=== PATIENT | female | born 1980 | race American Indian/Alaskan Native ===

== ENCOUNTER 2017-02-06 08:46 | Emergency (ER) | payer SELFPAY ==
[2017-02-06] MEDS ORDERED: ZOFRAN IV ONE (09:23)
[2017-02-06 09:31] VITALS: BP 113/76
[2017-02-06] MEDS ORDERED: TORADOL IV ONE (09:59)
[2017-02-06] MEDS ORDERED: NACL 0.9% 1000 ML 1,000 ML IV ONE (09:59)
[2017-02-06 10:00] LABS: Bacteria,Urine 1+ /HPF (Negative); Bilirubin,Urine NEG (Negative); Blood,Urine SM (Negative); Ketones,Urine NEG (Negative); Leukocyte Esterase,Urine MOD (Negative); Nitrite,Urine NEG (Negative); Protein,Urine <15 mg/dL mg/dL (Negative); Urobilinogen,Urine < 2.0 mg/dL (<2.0)
--- NOTE | 2017-02-06 10:04 | Emergency Department Report ---
<ARIEL LOPEZ M - Last Filed: 02/06/17 12:42> ED Abdominal Pain HPI - General Chief Complaint: Upper Respiratory Infection Stated Complaint: BODY PAIN Time Seen by Provider: 02/06/17 09:52 Source: patient Mode of arrival: Wheelchair Limitations: No Limitations - History of Present Illness Initial Comments: PT c/o abd pain and n/v x 2 days. PT states she is throwing up yellow stuff and she is scared because the last time she did that, she was having ectopic and she passed out. PT states the pain radiates up to her chest and around to her back. pt denies sick contacts. MD Complaint: abdominal pain Onset/Timin -: Gradual, days(s) Location: diffuse Radiation: back, chest Severity scale (0 -10): 10 Quality: stabbing, aching Consistency: constant Improves With: nothing Associated Symptoms: nausea, vomiting, fever, chills, anorexia - Related Data LMP Date: 02/01/17 Allergies Allergy/AdvReac Type Severity Reaction Status Date / Time No Known Allergies Allergy Unverified 02/06/17 09:31 ED Review of Systems ROS: Stated complaint: BODY PAIN Other details as noted in HPI Comment: All other systems reviewed and negative Constitutional: chills, fever, malaise ENT: congestion. denies: throat pain Respiratory: cough Cardiovascular: chest pain Gastrointestinal: abdominal pain, nausea, vomiting Genitourinary: dysuria, frequency Musculoskeletal: back pain ED Past Medical Hx - Past Medical History Previous Medical History?: No - Surgical History Past Surgical History?: No Hx Appendectomy: Yes (8 years) Additional Surgical History: R fallopian tube removal - Social History Smoking Status: Never Smoker Substance Use Type: None ED Physical Exam - General Limitations: No Limitations General appearance: alert, anxious - Head Head exam: Present: atraumatic, normocephalic - Eye Eye exam: Present: normal appearance, conjunctival injection (pt appears to have been crying) - ENT ENT exam: Present: normal exam, normal orophraynx, mucous membranes moist - Neck Neck exam: Present: normal inspection, full ROM - Respiratory Respiratory exam: Present: normal lung sounds bilaterally. Absent: respiratory distress - Cardiovascular Cardiovascular Exam: Present: regular rate, normal rhythm, normal heart sounds - GI/Abdominal GI/Abdominal exam: Present: soft, tenderness, guarding, normal bowel sounds - Expanded GI/Abdominal Exam Expanded GI/Abdominal exam: Present: Suero's sign - Extremities Exam Extremities exam: Present: normal inspection, full ROM - Back Exam Back exam: Present: normal inspection, CVA tenderness (R) - Neurological Exam Neurological exam: Present: alert, oriented X3 - Psychiatric Psychiatric exam: Present: normal affect, normal mood - Skin Skin exam: Present: warm, dry, intact ED Course Vital Signs 02/06/17 09:18 Temperature 98.5 F Pulse Rate 91 H Respiratory 24 Rate Blood Pressure 113/76 O2 Sat by Pulse 100 Oximetry - Reevaluation(s) Reevaluation #1: 02/06/17 10:04 PT states her N/V has improved since she was given IV Zofran. PT aware of significant PE findings and plan of care. PT is aware that she is NPO. Reevaluation #2: 02/06/17 12:42 PT feeling much better. pt denies pain at this time. PT aware of dx and plan of care. 02/06/17 12:48 dr perez aware of pt and agrees with plan of care. - Pulse Oximetry Interpretation Digit-Finger Initial Pulse Oximetry Readin Actions Taken: none ED Medical Decision Making - Lab Data Result diagrams: 02/06/17 11:10 02/06/17 11:10 labs reviewed, LFTs wnl. UA shows UTI - EKG Data -: EKG Interpreted by Me EKG shows normal: sinus rhythm Rate: normal - EKG Data When compared to previous EKG there are: previous EKG unavailable - Radiology Data Radiology results: report reviewed US Gallbladder - contracted gallbladder with stones - Differential Diagnosis AGE, uti, renal colic, cholethiasis, cholecystitis Critical care attestation.: If time is entered above; I have spent that time in minutes in the direct care of this critically ill patient, excluding procedure time. ED Disposition Disposition: DISCHARGED TO HOME OR SELFCARE Is pt being admited?: No Does the pt Need Aspirin: No Condition: Stable Instructions: Biliary Colic (ED), Urinary Tract Infection in Women (ED), Acute Pyelonephritis (ED), Acute Nausea and Vomiting (ED), Flank Pain (ED) Additional Instructions: Return to the ED if worsening Clear liquid diet today and advance as tolerated Follow up with GI Doctor for further testing on your gallbladder Finish all of your antibiotics no driving or ETOH after tylenol #3 Prescriptions: Acetaminophen/Codeine [Tylenol #3] 1 tab PO Q6H PRN #8 tab PRN Reason: Pain , Severe (7-10) Nitrofurantoin [place]/M-Cryst [Macrobid CAP] 100 mg PO Q12HR #14 capsule Ondansetron [Zofran Odt] 4 mg PO Q8HR PRN #10 tab.rapdis PRN Reason: Nausea Referrals: PRIMARY CARE, [Primary Care Provider] - 3-5 Days VIDHI CHOE MD [Staff Physician] - 3-5 Days [facility] [Provider Group] - 3-5 Days Time of Disposition: 12:48 <INDIA PEREZ - Last Filed: 02/06/17 12:54> ED Medical Decision Making - Lab Data Result diagrams: 02/06/17 11:10 02/06/17 11:10 - Medical Decision Making I spoke to patient about her diagnosis. She verbalizes understanding. She states she is feeling better. I reinforced that she is to follow up with GI for further imaging about gallbladder. I instructed nurse practitioner to provide ultrasound report for outpatient follow-up. Patient is tolerating by mouth prior to discharge and pain is controlled
--- NOTE | 2017-02-06 11:03 | Ultrasound Report ---
RIGHT UPPER QUADRANT ULTRASOUND: HISTORY: Right upper quadrant abdominal pain, vomiting. Technique: Transabdominal ultrasound imaging with Doppler interrogation. FINDINGS: A normal gallbladder is not identified. There is a shadowing echogenic complex in the gallbladder fossa. This probably represents a contracted gallbladder packed with stones. The CBD measures 4.7 mm. Images of the liver parenchyma, pancreas, right kidney and aorta are within normal limits. No perihepatic ascites. IMPRESSION: Abnormal gallbladder, see above. Contracted gallbladder packed with stones?
[2017-02-06 11:30] LABS: Basophils % (Auto) 0.6 % (0.0-1.8); Eosinophils % (Auto) 0.1 % (0.0-4.3); Hematocrit 39.5 % (30.3-42.9); Hemoglobin 13.1 gm/dl (10.1-14.3); Mean Corpuscular HGB Conc 33 % (30-34); Mean Corpuscular Hemoglobin 32 pg (28-32); Mean Corpuscular Volume 96 fl (79-97); Platelet Count 188 K/mm3 (140-440); Red Blood Count 4.11 M/mm3 (3.65-5.03); Red Cell Distribution Width 13.1 % (13.2-15.2); White Blood Count 10.8 K/mm3 (4.5-11.0)
[2017-02-06 11:52] LABS: Alanine Aminotransferase 6 units/L (7-56); Albumin 3.5 g/dL (3.9-5); Albumin/Globulin Ratio 1.2 %; Alkaline Phosphatase 51 units/L (35-129); Anion Gap 18 mmol/L; Bilirubin,Total 0.5 mg/dL (0.1-1.2); Blood Urea Nitrogen 7 mg/dL (7-17); Calcium 8.4 mg/dL (8.4-10.2); Carbon Dioxide 20 mmol/L (22-30); Chloride 105.5 mmol/L (98-107); Glucose 86 mg/dL (65-100); Lipase 6 units/L (13-60); Potassium 3.5 mmol/L (3.6-5.0); Sodium 140 mmol/L (137-145); Total Protein 6.5 g/dL (6.3-8.2)
[2017-02-06] MEDS ORDERED: ROCEPHIN/NS 1 GM/50 ML 1 GM/50 ML BAG IV ONE (11:56)
[2017-02-06] MEDS ORDERED: K-DUR PO ONE (12:42)
== END 2017-02-06 12:58 | disposition home or self-care (01) ==
LOC: ED 08:46
DX: R10.84 Generalized abdominal pain (principal); R11.2 Nausea with vomiting, unspecified; R50.9 Fever, unspecified
CPT/HCPCS: 36415; 76705; 80053; 81001; 81025; 82140; 83690; 84484; 85025; 87040; 87076; 87086; 87186; 87400; 93005; 93010; 96361; 96365; 96375; 99284; J0696; J1885; J2405; J7030

== ENCOUNTER 2017-02-07 19:51 | Emergency (ER) | payer SELFPAY ==
[2017-02-08] MEDS ORDERED: ZOFRAN IV ONE (02:00)
[2017-02-08] MEDS ORDERED: NACL 0.9% 1000 ML 1,000 ML IV ONE (02:00)
[2017-02-08] MEDS ORDERED: VALIUM IV ONE (02:00)
[2017-02-08 02:56] LABS: Basophils % (Auto) 0.6 % (0.0-1.8); Eosinophils % (Auto) 0.2 % (0.0-4.3); Hematocrit 38.2 % (30.3-42.9); Hemoglobin 12.8 gm/dl (10.1-14.3); Mean Corpuscular HGB Conc 34 % (30-34); Mean Corpuscular Hemoglobin 32 pg (28-32); Mean Corpuscular Volume 95 fl (79-97); Platelet Count 144 K/mm3 (140-440); Red Blood Count 4.04 M/mm3 (3.65-5.03); Red Cell Distribution Width 12.8 % (13.2-15.2); White Blood Count 8.2 K/mm3 (4.5-11.0)
[2017-02-08 03:19] LABS: Alanine Aminotransferase 10 units/L (7-56); Albumin 3.1 g/dL (3.9-5); Albumin/Globulin Ratio 0.9 %; Alkaline Phosphatase 64 units/L (35-129); Anion Gap 17 mmol/L; Bilirubin,Total 0.6 mg/dL (0.1-1.2); Blood Urea Nitrogen 10 mg/dL (7-17); Carbon Dioxide 24 mmol/L (22-30); Chloride 99.4 mmol/L (98-107); Glucose 85 mg/dL (65-100); Lipase 6 units/L (13-60); Potassium 3.3 mmol/L (3.6-5.0); Sodium 137 mmol/L (137-145); Total Protein 6.5 g/dL (6.3-8.2)
--- NOTE | 2017-02-08 03:49 | Emergency Department Report ---
HPI - General Chief Complaint: Abdominal Pain Time Seen by Provider: 02/08/17 00:48 - HPI HPI: The patient is a 37-year-old female who presents for evaluation of abdominal pain. The patient reports constant right upper quadrant abdominal pain for the past 10 days, 10/10 in severity, sharp in quality, radiating to the right flank , associated with nausea and nonbilious, nonbloody emesis. The patient denies fever, trauma to the abdomen, chest pain, dyspnea, diarrhea, blood in the stool , dark tarry stool, dysuria, hematuria, vaginal bleeding, genital discharge, inability to pass flatus. ED Past Medical Hx - Past Medical History Additional medical history: gallstones - Surgical History Hx Appendectomy: Yes (8 years) Additional Surgical History: R fallopian tube removal - Social History Smoking Status: Never Smoker Substance Use Type: None - Medications Home Medications: Home Medications Medication Instructions Recorded Confirmed Last Taken Type Acetaminophen/Codeine [Tylenol #3] 1 tab PO Q6H PRN #8 tab 02/06/17 Unknown Rx Nitrofurantoin [place]/M-Cryst 100 mg PO Q12HR #14 capsule 02/06/17 Unknown Rx [Macrobid CAP] Ondansetron [Zofran Odt] 4 mg PO Q8HR PRN #10 tab.rapdis 02/06/17 Unknown Rx HYDROcodone/APAP 7.5-325 [[place] 1 each PO Q8HR PRN #12 tablet 02/08/17 Unknown Rx 7.5-325 mg TAB] Levofloxacin [Levaquin TAB] 750 mg PO QDAY #10 tablet 02/08/17 Unknown Rx Ondansetron [Zofran TAB] 4 mg PO Q8HR PRN #20 tablet 02/08/17 Unknown Rx ED Review of Systems ROS: Stated complaint: RT FLANK PAIN Other details as noted in HPI Constitutional: denies: fever ENT: denies: throat or neck pain Respiratory: denies: cough, shortness of breath Cardiovascular: denies: chest pain Endocrine: denies unexplained weight loss or gain Gastrointestinal: reports abdominal pain, nausea Genitourinary: denies: dysuria Musculoskeletal: denies: leg swelling Skin: denies: rash Neurological: denies: headache Hematological/Lymphatic: denies: easy bleeding or easy bruising Psych: denies sadness or hopelessness Physical Exam - Physical Exam Vital Signs: Vital Signs 02/07/17 02/08/17 02/08/17 22:58 00:20 00:21 Temperature 97.7 F 98.4 F Pulse Rate 83 77 Respiratory 18 16 Rate Blood Pressure 115/68 Blood Pressure 95/59 [Left] O2 Sat by Pulse 100 98 98 Oximetry 02/08/17 02:00 Temperature 98.6 F Pulse Rate 69 Respiratory 18 Rate Blood Pressure Blood Pressure 105/67 [Left] O2 Sat by Pulse 97 Oximetry Physical Exam: General: well-nourished, well-developed, no acute distress Head: Normocephalic, atraumatic Eyes: normal sclera ENT: Mucous membranes are pale and dry Neck: No neck stiffness, no cervical adenopathy Respiratory: Breath sounds equal bilaterally, no wheezing, rales, or rhonchi Cardio: S1 and S2 present, no murmurs, rubs, gallops, capillary refill is delayed Abdomen: Normoactive bowel sounds, soft abdomen, right upper quadrant and right lower quadrant tenderness to palpation present, no rigidity, no guarding or rebound tenderness Chest WALL/Back: No tenderness to palpation of the chest wall, no CVA tenderness with percussion Musc: No pitting edema Skin: No rash Neuro: no facial drooping, normal speech Psych: Normal affect ED Course Vital Signs 02/07/17 02/08/17 02/08/17 22:58 00:20 00:21 Temperature 97.7 F 98.4 F Pulse Rate 83 77 Respiratory 18 16 Rate Blood Pressure 115/68 Blood Pressure 95/59 [Left] O2 Sat by Pulse 100 98 98 Oximetry 02/08/17 02:00 Temperature 98.6 F Pulse Rate 69 Respiratory 18 Rate Blood Pressure Blood Pressure 105/67 [Left] O2 Sat by Pulse 97 Oximetry ED Medical Decision Making - Lab Data Result diagrams: 02/08/17 Unknown 02/08/17 Unknown - Medical Decision Making The patient was seen and examined by myself. The patient is placed on a monitoring analyst and continuous pulse ox. On initial evaluation, the patient was found to be in no distress. Evaluation orders are placed. IV access is established and the patient is given 1 L normal saline fluid bolus and Zofran for nausea, and IV Valium for pain. Lab results were non-concerning including WBC, hemoglobin, hematocrit, electrolytes, renal function, LFTs, lipase. CT scan of the abdomen and pelvis revealed findings consistent with pyelonephritis , and otherwise was negative for bowel obstruction, bowel perforation, or other emergent intra-abdominal disease process. The patient is given Levaquin for treatment of pyelonephritis. She is given a prescription for Levaquin. The patient is stable for discharge with outpatient follow-up. The patient is given follow-up and return instructions. The patient expressed understanding and agreed with the plan. The patient is discharged in stable condition. Critical care attestation.: If time is entered above; I have spent that time in minutes in the direct care of this critically ill patient, excluding procedure time. ED Disposition Clinical Impression: Acute abdominal pain in right upper quadrant, Nausea and vomiting in adult patient, Dehydration, Pyelonephritis Disposition: DISCHARGED TO HOME OR SELFCARE Is pt being admited?: No Does the pt Need Aspirin: No Condition: Stable Instructions: Abdominal Pain (ED), Acute Pyelonephritis (ED), Urinary Tract Infection in Women (ED) Prescriptions: HYDROcodone/APAP 7.5-325 [[place] 7.5-325 mg TAB] 1 each PO Q8HR PRN #12 tablet PRN Reason: Pain Levofloxacin [Levaquin TAB] 750 mg PO QDAY #10 tablet Ondansetron [Zofran TAB] 4 mg PO Q8HR PRN #20 tablet PRN Reason: Nausea Referrals: PRIMARY CARE, [Primary Care Provider] - 3-5 Days Time of Disposition: 03:53
[2017-02-08] MEDS ORDERED: NACL ONE (03:51)
--- NOTE | 2017-02-08 05:43 | Cat Scan Report ---
FINAL REPORT EXAM: CT ABDOMEN PELVIS W CON HISTORY: RUQ abdominal pain and rt flank pain TECHNIQUE: CT abdomen and pelvis performed. Images extend from diaphragm to pubic symphysis. 100 cc Omnipaque 300 IV administered. No oral contrast was administered. Coronal and sagittal reformatted images were obtained. PRIORS: None. FINDINGS: The visualized aspects of the lung bases are clear. There is abnormal streaky enhancement pattern of the right kidney which appears mildly enlarged. This appearance is consistent with pyelonephritis. There is no abscess identified although there is a small amount of fluid in the right pericolic region and in the pelvis.. The patient is status post cholecystectomy. There is fatty infiltration of the liver. The visualized liver, spleen, pancreas, adrenal glands and kidneys demonstrate no significant abnormalities. There is no abdominal aortic aneurysm. There is no evidence of intestinal obstruction. The appendix is not specifically identified. Patient may be status post appendectomy. There is no free intraperitoneal air. Small amount of pelvic free fluid noted. Bladder is not distended but appears grossly unremarkable. IMPRESSION: Findings are consistent with right-sided pyelonephritis
[2017-02-08] MEDS ORDERED: LEVAQUIN PO ONE ×2 (06:04→06:07)
[2017-02-08] MEDS ORDERED: MORPHINE IV ONE (06:04)
[2017-02-08 06:47] VITALS: BP 108/62
[2017-02-08 07:30] LABS: Bacteria,Urine 1+ /HPF (Negative); Bilirubin,Urine NEG (Negative); Blood,Urine SM (Negative); Ketones,Urine NEG (Negative); Leukocyte Esterase,Urine MOD (Negative); Nitrite,Urine NEG (Negative); Protein,Urine <15 mg/dL mg/dL (Negative)
== END 2017-02-08 07:07 | disposition home or self-care (01) ==
LOC: ED 19:51
DX: N12 Tubulo-interstitial nephritis, not specified as acute or chronic (principal); E86.0 Dehydration; R10.11 Right upper quadrant pain; R11.2 Nausea with vomiting, unspecified
CPT/HCPCS: 36415; 74177; 80053; 81001; 83690; 84703; 85025; 96361; 96374; 96375; 99285; J2270; J2405; J3360; J7030; Q9967

== ENCOUNTER 2017-04-05 12:57 | Emergency (ER) | payer SELFPAY ==
[2017-04-05 13:15] VITALS: BP 132/84
--- NOTE | 2017-04-05 13:52 | Emergency Department Report ---
Entered by ISABEL JOE, acting as scribe for CHERELLE JULIO NP. Chief Complaint: Abdominal Pain Stated Complaint: VOMITTING/DIZZINESS/BACK PAIN/ABD CRAMPING Time Seen by Provider: 04/05/17 13:47 - HPI History of Present Illness: 37 year old female who is non-toxic, in no acute distress, not ill appearing presents with c/o nausea and vomiting today. She reports associated low back pain, urinary frequency. Denies dysuria, polyuria, urinary retention, abdominal pain. - ROS Review of Systems: Reports N/V, urinary frequency, low back pain. Denies dysuria, polyuria, urinary retention, abdominal pain. - Exam Vital Signs: Vital Signs 04/05/17 13:11 Temperature 98.1 F Pulse Rate 100 H Respiratory 18 Rate Blood Pressure 132/84 O2 Sat by Pulse 100 Oximetry Physical Exam: Constitutional: Non toxic appearing, NAD. Abdomen: Abdomen is non-distended, soft with no tenderness to palpation in all quadrants. MSE screening note: Focused history and physical exam performed. Due to findings the following was ordered:CBC, CMP, serum HCG qualitative, UA ED Disposition for MSE Condition: Stable Instructions: Abdominal Pain (ED) This documentation as recorded by the scribe,ISABEL JOE,accurately reflects the service I personally performed and the decisions made by ,CHERELLE JULIO, HENNA.
[2017-04-05 14:21] LABS: Basophils % (Auto) 1.1 % (0.0-1.8); Eosinophils % (Auto) 2.2 % (0.0-4.3); Hematocrit 41.4 % (30.3-42.9); Mean Corpuscular HGB Conc 34 % (30-34); Mean Corpuscular Hemoglobin 33 pg (28-32); Mean Corpuscular Volume 96 fl (79-97); Platelet Count 236 K/mm3 (140-440); Red Blood Count 4.31 M/mm3 (3.65-5.03); Red Cell Distribution Width 14.4 % (13.2-15.2); White Blood Count 5.2 K/mm3 (4.5-11.0)
[2017-04-05 14:35] LABS: Alanine Aminotransferase 9 units/L (7-56); Albumin 4.2 g/dL (3.9-5); Albumin/Globulin Ratio 1.5 %; Alkaline Phosphatase 49 units/L (35-129); Anion Gap 16 mmol/L; Blood Urea Nitrogen 9 mg/dL (7-17); Calcium 9.3 mg/dL (8.4-10.2); Carbon Dioxide 24 mmol/L (22-30); Chloride 100.7 mmol/L (98-107); Glucose 114 mg/dL (65-100); Potassium 3.6 mmol/L (3.6-5.0); Sodium 137 mmol/L (137-145)
[2017-04-05 16:01] LABS: Bilirubin,Urine NEG (Negative); Blood,Urine NEG (Negative); Ketones,Urine TR mg/dL (Negative); Leukocyte Esterase,Urine SM (Negative); Mucus,Urine 3+ /HPF; Nitrite,Urine NEG (Negative); Protein,Urine <15 mg/dL mg/dL (Negative); Urobilinogen,Urine < 2.0 mg/dL (<2.0)
--- NOTE | 2017-04-05 18:58 | Emergency Department Report ---
HPI - General Chief Complaint: Abdominal Pain Time Seen by Provider: 04/05/17 18:53 - HPI HPI: 37-year-old -[place] female comes in for just reporting she wants a test to this provider. Patient reports her last menstrual. It was . She denies any vaginal discharge and denies abdominal pain she denies any other complaints. ED Past Medical Hx - Past Medical History Previous Medical History?: No Additional medical history: gallstones - Surgical History Hx Appendectomy: Yes (8 years) Additional Surgical History: R fallopian tube removal - Social History Smoking Status: Never Smoker Substance Use Type: None - Medications Home Medications: Home Medications Medication Instructions Recorded Confirmed Last Taken Type Acetaminophen/Codeine [Tylenol #3] 1 tab PO Q6H PRN #8 tab 02/06/17 Unknown Rx Nitrofurantoin [place]/M-Cryst 100 mg PO Q12HR #14 capsule 02/06/17 Unknown Rx [Macrobid CAP] Ondansetron [Zofran Odt] 4 mg PO Q8HR PRN #10 tab.rapdis 02/06/17 Unknown Rx HYDROcodone/APAP 7.5-325 [[place] 1 each PO Q8HR PRN #12 tablet 02/08/17 Unknown Rx 7.5-325 mg TAB] Levofloxacin [Levaquin TAB] 750 mg PO QDAY #10 tablet 02/08/17 Unknown Rx Ondansetron [Zofran TAB] 4 mg PO Q8HR PRN #20 tablet 02/08/17 Unknown Rx ED Review of Systems ROS: Stated complaint: VOMITTING/DIZZINESS/BACK PAIN/ABD CRAMPING Other details as noted in HPI Physical Exam - Physical Exam Vital Signs: Vital Signs 04/05/17 13:11 Temperature 98.1 F Pulse Rate 100 H Respiratory 18 Rate Blood Pressure 132/84 O2 Sat by Pulse 100 Oximetry Physical Exam: GENERAL: Alert and oriented x3, no apparent distress, Normal Gait, atraumatic. HEAD: Head is normocephalic and a-traumatic. MOUTH:Mouth is well hydrated and without lesions. Tonsils nonerythematous or swollen, Uvula midline, Tongue not elevated. Mucous membranes are moist. Posterior pharynx clear, no exudate or lesions. Patent airways. NECK: Supple. Non edematous, No carotid bruits. No lymphadenopathy or thyromegaly. LUNGS: Symetrical with respiration, No wheezing, no rales or crackles, CTAB. HEART: S1, S2 present, regular rate and rhythm without murmur, no rubs, no gallops. EXTREMITIES/MUSCULOSKELETAL: No cyanosis, clubbing, rash, lesions or edema. Full ROM bilaterally. UE/LE Pulses 2+ bilaterally. LE and UE 5+ strength bilaterally NEUROLOGIC: No focal Deficit, Cranial nerves II through XII are grossly intact. No loss of sensation, No facial droop, Negative rhomberg. PSYCHIATRIC: Mood is congruent with affect, denies suicidal or homicidal ideations. SKIN: Warm and dry, No lesions, No ulceration or induration present ED Course Vital Signs 04/05/17 13:11 Temperature 98.1 F Pulse Rate 100 H Respiratory 18 Rate Blood Pressure 132/84 O2 Sat by Pulse 100 Oximetry ED Medical Decision Making - Lab Data Result diagrams: 04/05/17 13:58 04/05/17 13:58 - Medical Decision Making Patient's been evaluated by this provider in fast track. Patient questioned why her menstrual period is late. Discussed the patient are not sure that her test was negative and she needs to follow up with her primary care provider for further evaluation. Critical care attestation.: If time is entered above; I have spent that time in minutes in the direct care of this critically ill patient, excluding procedure time. ED Disposition Clinical Impression: test negative Disposition: DISCHARGED TO HOME OR SELFCARE Is pt being admited?: No Does the pt Need Aspirin: No Condition: Stable Instructions: Abdominal Pain (ED) Additional Instructions: Is follow-up with her primary care provider for further evaluation Referrals: PRIMARY CARE,MD [Primary Care Provider] - 3-5 Days your,provider [Other] - 3-5 Days
== END 2017-04-05 19:05 | disposition home or self-care (01) ==
LOC: ED 12:57
DX: Z32.02 Encounter for pregnancy test, result negative (principal)
CPT/HCPCS: 36415; 80053; 81001; 84703; 85025